=== PATIENT | female | born 1960 | race Caucasian/White ===

== ENCOUNTER → 2024-02-25 | Outpatient (CLI) | payer MEDICARE, MEDICAID, SELFPAY ==
--- NOTE | 2024-02-25 07:30 | XR_ITS ---
Examination: Breast ultrasound, unilateral, left complete Date and time of exam: February 25, 2024 0746 hours INDICATIONS: Mammogram August 24, 2023 3 mm focal asymmetry upper left breast MLO view, 6.3 cm from the nipple, family history, sister, breast cancer Technique: Real-time shannon scale ultrasonographic imaging performed left breast including all 4 quadrants as well as nipple retroareolar and axillary region. Findings: No cystic or solid mass IMPRESSION: BI-RADS Category 1: Negative study
--- NOTE | 2024-02-25 08:00 | XR_ITS ---
Examination: Diagnostic digital mammography, unilateral, left Computer aided detection 3-D breast Tomosynthesis, unilateral Date and time of exam: February 25, 2024 0756 hours INDICATIONS: 3 mm focal asymmetry upper left breast MLO view, 6.3 cm from the nipple Technique: Nonmagnified MLO, CC views of the left breast have been obtained, reconstructed from 3-D Tomosynthesis images. R2 computer aided detection program utilized for evaluation of suspicious masses and/or abnormal calcifications. 3-D Tomosynthesis images obtained. Findings: Scattered areas of fibroglandular density Focal asymmetry remains upper left breast MLO view, 3 mm Impression: BI-RADS category 3: Probably benign findings One additional 6 month left mammogram follow-up is needed to document stability of focal asymmetry upper left breast MLO view
== END | disposition home or self-care (01) ==
PROVIDERS: Referring Provider Physician Assistant; Visit Provider Physician Assistant
DX: R92.8 Other abnormal and inconclusive findings on diagnostic imaging of breast (principal); N64.89 Other specified disorders of breast; Z80.3 Family history of malignant neoplasm of breast
CPT/HCPCS: 76641; 77061; 77065; G0279

== ENCOUNTER 2024-02-26 16:03 | Emergency (ER) | payer MEDICARE, MEDICAID, SELFPAY ==
[2024-02-26 16:04] VITALS: BMI 42.5
[2024-02-26 16:22] VITALS: BP 154/95; PULSE 63; RESP 18; TEMP 37.1; O2SAT 99
--- NOTE | 2024-02-26 16:35 | XR_ITS ---
Examination: Knee, left , 3 views Technique: Knee AP, lateral, oblique 3 views Date and time of exam: February 27, 2024 1645 hours INDICATIONS: Patient fell last night with injury to the knee, knee pain. FINDINGS: No acute fracture No dislocation No foreign body IMPRESSION: No acute fracture
--- NOTE | 2024-02-26 16:35 | XR_ITS ---
Examination: Wrist, left 3 views Technique: Wrist AP, oblique, lateral 3 views Date and time of exam: February 26, 2024 1645 hours INDICATIONS: Patient fell last night with injury to the wrist, wrist pain. FINDINGS: No acute fracture Atrophic trapezium Soft tissue swelling dorsum of the wrist IMPRESSION: No acute fracture
--- NOTE | 2024-02-26 18:14 | EDNOTE_ITS ---
<Statement entered by Norma Pleitez MD - 02/28/24 15:27> As co-signing physician, I was present and available for consult prn. I concur with the plan and care as documented by the midlevel provider. Upper Extremity Injury RME/HPI General Chief Complaint: Hand/Wrist Problems Stated Complaint: LEFT WRIST PAIN Time Seen by Provider: 02/26/24 16:30 Arrival date/time: 02/26/24 16:03 64-year-old female presents emergency department complains of left wrist pain and left knee pain Limitations: no limitations Related Data Home Medications ?Medication ?Instructions ?Recorded ?Confirmed atenolol 50 mg tablet (Tenormin) 50 mg PO QPM #0 tabs 10/15/14 11/20/23 gabapentin 600 mg tablet 600 mg PO TID #0 tabs 10/15/14 11/20/23 pravastatin 20 mg tablet 20 mg PO QDAY #0 tabs 10/15/14 11/20/23 (Pravachol) quetiapine 200 mg tablet (Seroquel) 200 mg PO QDAY #0 tabs 10/15/14 11/20/23 cyclobenzaprine 10 mg tablet 10 mg PO HS 03/01/19 11/20/23 lorazepam 2 mg tablet 1 mg PO BID 03/01/19 11/20/23 quetiapine 200 mg tablet 3 tab PO HS 03/01/19 11/20/23 triamterene 37.5 1 cap PO QDAY 03/02/19 11/20/23 mg-hydrochlorothiazide 25 mg capsule acetaminophen 325 mg tablet 325 mg PO QID PRN Pain 07/28/20 11/20/23 (Tylenol) ascorbic acid 125 mg-collagen, 1 cap PO DAILY 07/28/20 11/20/23 hydrolyzed 740 mg capsule (Collagen Plus Vitamin C) cetirizine 10 mg tablet (Zyrtec) 10 mg PO QDAY 07/28/20 11/20/23 cholecalciferol (vitamin D3) 125 125 mcg PO QDAY 07/28/20 11/20/23 mcg (5,000 unit) tablet (Vitamin D3) lysine 500 mg capsule 500 mg PO DAILY 07/28/20 11/20/23 coqskkun-oshe-ofim 8 mg-folic 400 1 tab PO QDAY 07/28/20 11/20/23 mcg-K 50 mcg-lutein 300 mcg tablet (Centrum Silver Women) psyllium husk 0.4 gram capsule 0.4 g PO QDAY 07/28/20 11/20/23 (Metamucil) venlafaxine 100 mg tablet 100 mg PO QDAY 07/28/20 11/20/23 zinc 50 mg tablet 50 mg PO QDAY 07/28/20 11/20/23 losartan 25 mg tablet 25 mg PO QDAY 07/30/20 11/20/23 venlafaxine 150 mg tablet,extended 150 mg PO TID 07/30/20 11/20/23 release 24 hr Previous Rx's ?Medication ?Instructions ?Recorded diphenhydramine HCl 50 mg capsule 50 mg PO Q8H PRN allergic reaction 03/01/19 #30 caps Allergies Allergy/AdvReac Type Severity Reaction Status Date / Time morphine Allergy Mild Itching Verified 02/26/24 16:06 amoxicillin [From Augmentin] Allergy Unknown Swelling Verified 02/26/24 16:06 of Lip/Tongue/Throat clavulanic acid Allergy Unknown Swelling Verified 02/26/24 16:06 [From Augmentin] of Lip/Tongue/Throat Review of Systems Review of Systems Systems Reviewed: All systems reviewed, normal except as documented Constitutional Constitutional: Reports system reviewed and no additional complaints, except as documented, Denies fever(s) and Denies headache(s) Eyes Eyes: Reports system reviewed and no additional complaints, except as documented and Denies blurry vision ENT Ears, Nose, Mouth, and Throat: Reports system reviewed and no additional complaints, except as documented, Denies headache(s), Denies nasal congestion and Denies nasal discharge Cardiovascular Cardiovascular: Reports system reviewed and no additional complaints, except as documented, Denies chest pain and Denies dyspnea Respiratory Respiratory: Reports system reviewed and no additional complaints, except as documented, Denies chest congestion, Denies cough and Denies dyspnea Gastrointestinal Gastrointestinal: Reports system reviewed and no additional complaints, except as documented and Denies abdominal pain Musculoskeletal Musculoskeletal: Reports system reviewed and no additional complaints, except as documented, Reports arthralgias (Left knee pain left wrist pain), Denies joint swelling, Denies numbness, Reports stiffness and Denies tingling Integumentary/Breasts Skin/Breast: Reports system reviewed and no additional complaints, except as documented and Denies rash Neurologic Neurologic: Reports system reviewed and no additional complaints, except as documented, Reports as per HPI, Denies headache(s), Denies numbness and Denies tingling Past Medical History Past Medical History NEUROLOGIC: Negative Neurological Disorders or Seizures CARDIAC: Positive Cardiac Disorders (seen mend worker 2018), Hypercholesterolemia (TAKE MED) and Hypertension (TAKE MED); Negative Congestive Heart Failure, Edema, Cellulitis or Varicose Veins RESPIRATORY: Negative Chronic Obstructive Pulmonary Disease (COPD) GASTROINTESTINAL: Positive Gastrointestinal Disorders, Diverticulosis and Hemorrhoids (NO SURG); Negative Hepatitis GENITOURINARY: Negative Genitourinary Disorders or Renal Disease REPRODUCTIVE: Positive Previous Pregnancies (X6); Negative Endometriosis, Genital Herpes, Gonorrhea, Pelvic Inflammatory Disease, Syphilis or Uterine Prolapse MUSCULOSKELETAL: Positive Musculoskeletal Disorders (pain management due to neck/back, shots to neck x3 per year), Arthritis (neck/back), Degenerative Disk Disease (neck/back) and Carpal Tunnel Syndrome (BUBBA X2 EACH) ENDOCRINE: Negative Endocrine Disorders, Diabetes Mellitus Type 1 or Diabetes Mellitus Type 2 (PREDIABETES) HEMATOLOGIC: Positive Blood Disorders and Anemia (blood transfusion, ovarian cyst heavy period); Negative Leukemia, Hemophilia, Thalassemia, Sickle Cell Disease or Clotting Problems PSYCHO/SOCIAL: Positive Depression (TAKES MED) and Anxiety (TAKES MED) OTHER HISTORY: Positive Shingles (2005), Blood Transfusions (DUE TO ENDOMETRIOSIS PRIOR TO HYSTERECTOMY), Anesthesia Reactions (MORPHINE DUE TO EPIDURAL ITCHING), Chicken Pox, Measles, Mumps and Clostridium Difficile; Negative Hospitalization, Autoimmune Disease, Down Syndrome, Developmental Delay, Falls, Blood Transfusion Reaction, Organ Transplant, Chemotherapy, Radiation Therapy, Hyperbaric Therapy, MRSA, VRSA, Vancomycin-Resistant Enterococci, Human Immunodeficiency Virus (HIV), Rubella (Hungarian Measles), Pertussis or Cancer Family History FAMILY HISTORY: Positive Family Psychiatric Problems (SISTER (DEPRESSION,ANXIETY)), Family Respiratory Disorders (SISTER (ASTHMA)), Family Cardiac Disorders (FATHER (CO,QUADRUPLE BYPASS,CHF),BROTHER,SISTER (HTN)), Family Gastrointestinal Problems (SISTER (ULCER,STOMACH)), Family Cancer (SISTER (STOMACH)), Family Surgery (FATHER,SISTER,MOTHER,BROTHER) and Family Anesthesia Reaction (BROTHER (CODED IN OR)) Surgical History SURGICAL: Positive Tonsillectomy, Gastric Bypass Surgery (2010), Hysterectomy (total WITH BUBBA SALPING) and Section (x1); Negative Cardiac Surgery, Pacemaker or Organ Transplant Social History SMOKING STATUS: Never smoker ED Exam General Limitations: Present no limitations General appearance: Present alert and in no apparent distress Head Head exam: Present atraumatic, normocephalic and normal inspection Eye Eye exam: Present normal appearance, PERRL and EOMI ENT ENT exam: Present normal exam, normal oropharynx and mucous membranes moist Neck Neck exam: Present normal inspection, full ROM and trachea midline Chest Chest inspection: Present normal inspection and symmetric chest wall rise Respiratory Respiratory exam: Present normal lung sounds bilaterally Cardiovascular Cardiovascular exam: Present regular rate, normal rhythm and normal heart sounds Abdominal Exam Abdominal exam: Present soft and normal bowel sounds Extremities Exam Extremities exam: Present full ROM, tenderness, normal capillary refill and other (Left wrist pain, left knee pain); Absent pedal edema or joint swelling Back Exam Back exam: Present normal inspection and full ROM Neurological Exam Neurological exam: Present alert, oriented X3 and CN II-XII intact Psychiatric Psychiatric exam: Present normal affect and normal mood Skin Skin exam: Present warm, dry, intact and normal color Course Quality Measures none Orders Category Date Time Status XR knee LT 3V Stat Exams 02/26/24 16:35 Completed XR wrist comp LT min 3V Stat Exams 02/26/24 16:35 Completed Vital Signs Vital signs: Vital Signs Temperature 98.7 F 02/26/24 16:22 Pulse Rate 63 02/26/24 16:22 Respiratory Rate 18 02/26/24 16:22 Blood Pressure 154/95 H 02/26/24 16:22 Pulse Oximetry (%) 99 02/26/24 16:22 Oxygen Delivery Method Room Air 02/26/24 16:22 O2 saturation 99 % r/a wnl Extremity Injury MDM Narrative MDM Narrative:: 64-year-old female presents emergency department complains of left wrist pain and left knee pain patient reports having ground-level fall patient reports no head or neck injury On exam patient is tenderness of the left wrist and left knee there is no definite swelling noted no bruising X-ray of the left knee and left wrist obtained no acute fracture dislocation noted Patient discharged home in no distress to follow-up with primary care doctor in the next 24 to 48 hours and for any worsening symptoms to return to the ER immediately Patient data External records reviewed:: [facility] previous records Clinical information provided by:: patient Social determinants that could affect healthcare access:: none Patient has the following chronic illnesses:: None How is presenting disease/condition affected by chronic disease/condition?: no chronic disease Evaluation data The following diagnostics were reviewed and interpreted by me:: radiology exam(s) Lab and/or radiology exams considered but not ordered:: Radiology obtain Interpretation Summary: Reviewed by me Medications / Prescriptions Medications or Prescriptions considered but not ordered:: No meds Medication administrations:: No meds Consultations Consultation(s) initiated? (list below): No Diagnosis Upper Extremity Injury Differential Diagnosis: sprain and strain of wrist, fracture of wrist and other (Knee sprain, knee fracture) Most likely diagnosis given after review of the tests above:: Knee sprain, wrist sprain Admission Indicated Admission indicated?: not indicated Admission Request Was there a request for admission?: No Disposition Plan Disposition Plan: Discharge Discharge Attestation Discharge Attestation: The patient and all family members were given an opportunity to ask questions and understood the discharge instructions. Discharge instructions specifically effects, indications for sooner follow up or return to the emergency department, and the expected course of current diagnosis. Patient condition: Stable Discharge Plan Plan Patient Disposition: HOME (Self Care) Disposition Comment: Stable Prescriptions/Referrals Prescriptions/Med Rec: No Action gabapentin 600 MG tablet 600 mg PO TID Qty: 0 quetiapine [Seroquel] 200 MG tablet 200 mg PO QDAY Qty: 0 pravastatin [Pravachol] 20 MG tablet 20 mg PO QDAY Qty: 0 atenolol [Tenormin] 50 MG tablet 50 mg PO QPM Qty: 0 cyclobenzaprine 10 mg Tablet 10 mg PO HS quetiapine 200 mg Tablet 3 tab PO HS lorazepam 2 mg Tablet 1 mg PO BID diphenhydramine HCl 50 mg capsule 50 mg PO Q8H PRN (Reason: allergic reaction) Qty: 30 0RF triamterene-hydrochlorothiazid 37.5-25 mg Capsule 1 cap PO QDAY lysine 500 mg Capsule 500 mg PO DAILY Collagen Plus Vitamin C 125-740 mg Capsule 1 cap PO DAILY Centrum Silver Women 8 mg iron-400 mcg-300 mcg Tablet 1 tab PO QDAY psyllium husk [Metamucil] 0.4 gram Capsule 0.4 g PO QDAY acetaminophen [Tylenol] 325 mg Tablet 325 mg PO QID PRN (Reason: Pain) cetirizine [Zyrtec] 10 mg Tablet 10 mg PO QDAY venlafaxine 100 mg Tablet 100 mg PO QDAY zinc 50 mg Tablet 50 mg PO QDAY cholecalciferol (vitamin D3) [Vitamin D3] 125 mcg (5,000 unit) Tablet 125 mcg PO QDAY losartan 25 mg Tablet 25 mg PO QDAY venlafaxine 150 mg Tablet Extended Release 24hr 150 mg PO TID Referrals: Cheryl King PA-C [Primary Care Provider] - In 1 week Problem List Clinical Impression: Fall, Left wrist pain, Left knee pain Patient/Caregiver Discharge Instructions Additional Instructions: Please follow up with your primary care doctor in the next 24-48hrs for any worsening symptoms return here immediately Print Language: Malay Stand Alone Forms: Carey Award Info., Patient Portal Info Letter PA/HOLLIS Supervising Physician PA/HOLLIS Supervising Physician: Dr. PLEITEZ
== END 2024-02-26 18:42 | disposition home or self-care (01) ==
PROVIDERS: Emergency Provider Emergency Medicine; PCP Physician Assistant
DX: M25.532 Pain in left wrist (principal); M25.562 Pain in left knee
CPT/HCPCS: 73110; 73562; 99283

== ENCOUNTER 2024-03-18 14:47 | Outpatient (AMB) | payer MEDICARE, MEDICAID, SELFPAY ==
[2024-03-18 15:22] VITALS: BP 143/88; PULSE 74; RESP 18; TEMP 35.9; O2SAT 98; BMI 42.5
--- NOTE | 2024-03-18 15:22 | PD.ORTHCLVIS ---
Vital signs 03/18/24 15:22 Height 1.6 m Height Method Stated Weight 108.862 kg Weight Measurement Method Estimated by Patient BMI 42.5 BP 143/88 H Blood Pressure Source Automatic Cuff Blood Pressure Location Left Upper Arm Position Sitting Respiration 18 Pulse 74 Pulse Source Monitor Temp 96.6 F L Temp Source Temporal Artery Scan Pulse Oximetry (%) 98 Oxygen Delivery Method Room Air Med/Allergies Allergies & Medications Allergies morphine Allergy (Mild, Verified 03/18/24 15:23) Itching amoxicillin (From Augmentin) Allergy (Unknown, Verified 03/18/24 15:23) Swelling of Lip/Tongue/Throat clavulanic acid (From Augmentin) Allergy (Unknown, Verified 03/18/24 15:23) Swelling of Lip/Tongue/Throat Medication Reconciliation atenolol 50 mg tablet (Tenormin) 50 mg PO QPM #0 tabs 10/15/14 [History Confirmed 03/18/24] gabapentin 600 mg tablet 600 mg PO TID #0 tabs 10/15/14 [History Confirmed 03/18/24] pravastatin 20 mg tablet (Pravachol) 20 mg PO QDAY #0 tabs 10/15/14 [History Confirmed 03/18/24] quetiapine 200 mg tablet (Seroquel) 200 mg PO QDAY #0 tabs 10/15/14 [History Confirmed 03/18/24] cyclobenzaprine 10 mg tablet 10 mg PO HS 03/01/19 [History Confirmed 03/18/24] diphenhydramine HCl 50 mg capsule 50 mg PO Q8H PRN allergic reaction #30 caps 03/01/19 [Rx Confirmed 03/18/24] lorazepam 2 mg tablet 1 mg PO BID 03/01/19 [History Confirmed 03/18/24] quetiapine 200 mg tablet 3 tab PO HS 03/01/19 [History Confirmed 03/18/24] triamterene 37.5 mg-hydrochlorothiazide 25 mg capsule 1 cap PO QDAY 03/02/19 [History Confirmed 03/18/24] acetaminophen 325 mg tablet (Tylenol) 325 mg PO QID PRN Pain 07/28/20 [History Confirmed 03/18/24] ascorbic acid 125 mg-collagen, hydrolyzed 740 mg capsule (Collagen Plus Vitamin C) 1 cap PO DAILY 07/28/20 [History Confirmed 03/18/24] cetirizine 10 mg tablet (Zyrtec) 10 mg PO QDAY 07/28/20 [History Confirmed 03/18/24] cholecalciferol (vitamin D3) 125 mcg (5,000 unit) tablet (Vitamin D3) 125 mcg PO QDAY 07/28/20 [History Confirmed 03/18/24] lysine 500 mg capsule 500 mg PO DAILY 07/28/20 [History Confirmed 03/18/24] umzuoksq-zmtq-vqwy 8 mg-folic 400 mcg-K 50 mcg-lutein 300 mcg tablet (Centrum Silver Women) 1 tab PO QDAY 07/28/20 [History Confirmed 03/18/24] psyllium husk 0.4 gram capsule (Metamucil) 0.4 g PO QDAY 07/28/20 [History Confirmed 03/18/24] venlafaxine 100 mg tablet 100 mg PO QDAY 07/28/20 [History Confirmed 03/18/24] zinc 50 mg tablet 50 mg PO QDAY 07/28/20 [History Confirmed 03/18/24] losartan 25 mg tablet 25 mg PO QDAY 07/30/20 [History Confirmed 03/18/24] venlafaxine 150 mg tablet,extended release 24 hr 150 mg PO TID 07/30/20 [History Confirmed 03/18/24] meloxicam 7.5 mg tablet 7.5 mg PO QDAY #45 tabs 03/18/24 [Rx] Exam Exam Patient is in no acute distress and is cooperative with the examination today. Breathing is nonlabored. Patient has a normal mood and affect. Bilateral extremities were evaluated and demonstrates sensation intact to light touch. Palpable pedal pulses are present. No significant edema is present. Bilateral hips were examined. The patient has no pain with log roll of the hips. Internal rotation to 30 degrees and external rotation to 30 degrees is painless. Negative FADIR. Right knee was examined today. The right knee is in reasonable alignment. Range of motion from 0-120 degrees. Knee is stable to varus and valgus as well as AP translation with <5mm. Patient has a negative McMurrays. There is no pain with patellofemoral compression and no crepitus noted. The knee is nontender to palpation. Left knee was examined today. The left knee is in [varus] alignment. Range of motion from [0-115] degrees. Knee is stable to varus and valgus as well as AP translation with <5mm. Patient has a [negative] McMurrays. There is [no] pain with patellofemoral compression and [no] crepitus noted. The knee is [tender] to palpation [medially]. X-rays demonstrate moderate osteoarthritis of the left knee. There is joint space narrowing. There is no fracture Assessment and Plan Problem List (1) Unilateral primary osteoarthritis, left knee: Status: Acute Plan: Patient is a pleasant 63-year-old female who presents today for evaluation of her left knee. She has mild to moderate left knee osteoarthritis. She is trying to lose weight. We discussed cortisone injections and anti-inflammatories and other nonoperative treatments. . We also recommend weight loss. Advanced Care Planning Discussion Advance care planning discussed with:: patient Office Procedures GNS Level of Care Nursing/Assessment Patient Status: Established Patient Nursing Assessment/Reassesment: Medication Reconciliation, Update PMH in EMR and Vital Signs Coordination of Care: Complex Care and Chronic Disease 1-5, Education Complex Pt/Fam, Consent,records obtained, informed consent, Results/Orders obtained and Staff clarify orders Established Patient Charge Established Patient Point Assignment: 95 Established Patient Point Charge: EP Level 3 (80-115) MA Intake Visit Data Collection New Patient or Established: Established Patient (seen at [facility] within 3 years) Reason for Visit:: 3MTH F/U KNEE INJ Seen by Clinical Staff ONLY (RN/MA): No Airline Reservation Agent Required: No PCP or OBGYN visit in last 3 months: Yes Hx Now: No Do You Feel Safe at Home: Yes Authorities Contacted: N/A Questionairres Past Medical History Past Medical History Have you ever been diagnosed with any of the following: Neurological Problems Seizures: No Cardiology Problems Hypercholesterolemia: Yes (TAKE MED) Congestive Heart Failure: No Edema: No Cellulitis: No Hypertension: Yes (TAKE MED) Varicose Veins: No Respiratory Problems Chronic Obstructive Pulmonary Disease (COPD): No Stomache/Intestinal Problems Hepatitis: No Diverticulosis: Yes Hemorrhoids: Yes (NO SURG) Genital/Urinary Problems Renal Disease: No Reproductive Problems Endometriosis: No Genital Herpes: No Gonorrhea: No Pelvic Inflammatory Disease: No Previous Pregnancies: Yes (X6) Syphilis: No Uterine Prolapse: No Musculoskeletal Problems Arthritis: Yes (neck/back) Degenerative Disk Disease: Yes (neck/back) Carpal Tunnel Syndrome: Yes (BUBBA X2 EACH) Endocrine Problems Diabetes Mellitus Type 1: No Diabetes Mellitus Type 2: No (PREDIABETES) Blood Problems Anemia: Yes (blood transfusion, ovarian cyst heavy period) Leukemia: No Hemophilia: No Thalassemia: No Sickle Cell Disease: No Clotting Problems: No Psychologic Problems Depression: Yes (TAKES MED) Anxiety: Yes (TAKES MED) Other Problems Hospitalization: No Down Syndrome: No Developmental Delay: No Shingles: Yes (2004) Falls: No Blood Transfusions: Yes (DUE TO ENDOMETRIOSIS PRIOR TO HYSTERECTOMY) Blood Transfusion Reaction: No Anesthesia Reactions: Yes (MORPHINE DUE TO EPIDURAL ITCHING) Organ Transplant: No Chemotherapy: No Radiation Therapy: No Hyperbaric Therapy: No MRSA: No VRSA: No Vancomycin-Resistant Enterococci: No Human Immunodeficiency Virus (HIV): No Chicken Pox: Yes Measles: Yes Mumps: Yes Rubella (Azeri Measles): No Pertussis: No Clostridium Difficile: Yes Cancer: No Surgical History Hysterectomy: Yes (total WITH BUBBA SALPING) Pacemaker: No Subjective Visit Visit for: follow up visit, knee and injections Immunization / Flu Flu Vaccine in the Last 12 Months: No Flu Vaccine Exclusion Criteria: No Exclusion Criteria History of Present Illness Chief complaint: left knee pain She had a fall 3 weeks ago. The pain is improving. She is walking and reports that the pain is worse in the hand Pain Pain level (0-10): 3 Pain duration: ON AND OFF Pain location: inside (medial), outside (lateral) and anterior Pain quality: sharp and aching Pain timing: increases with activity Associated signs & symptoms: none Ambulatory data Ambulatory device: none Treatments Improvement with previous injections: No Improvement with PT: No Improvement with NSAIDS: no Review of Systems Review of Systems: All systems negative unless otherwise noted in HPI.
== END 2024-03-18 15:45 | disposition home or self-care (01) ==
LOC: HODSRG 14:47
PROVIDERS: PCP Physician Assistant; Referring Provider Physician Assistant; Supervising Provider Orthopaedic Surgery Adult Reconstructive Orthopaedic Surgery; Visit Provider Orthopaedic Surgery Adult Reconstructive Orthopaedic Surgery
DX: M17.12 Unilateral primary osteoarthritis, left knee (principal); I10 Essential (primary) hypertension; E78.00 Pure hypercholesterolemia, unspecified
CPT/HCPCS: 99213; G0463

== ENCOUNTER 2024-06-09 10:35 | Day surgery (SDC) | payer MEDICARE, MEDICAID, SELFPAY ==
--- NOTE | 2024-06-06 11:15 | EKG_ITS ---
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 : 1960 Requested By: Fay Espinosa Order Number: [id number] Reading MD: Fay Espinosa Measurements Intervals [place] Rate: 66 P: 66 [place]: 198 QRS: -54 QRSD: 107 T: 62 QT: 394 QTc: 414 Interpretive Statements SINUS RHYTHM PATTERN CONSISTENT WITH PULMONARY DISEASE LEFT ANTERIOR FASCICULAR BLOCK [QRS AXIS <= -45, QR IN I, RS IN II] VOLTAGE CRITERIA FOR LVH [MEETS CRITERIA IN ONE OF: R(aVL), S(V1), R(V5), R(V5/V6)+S(V1)] Compared to ECG 07/30/2020 10:28:19 Left ventricular hypertrophy now present Incomplete right bundle-branch block no longer present /store/S0/[id number]
[2024-06-06 11:52] LABS: Alanine Aminotransferase 18 U/L (10-49); Albumin, Serum 4.1 gm/dL (3.4-4.8); Albumin/Globulin Ratio 1.7 (1.2-2.2); Alkaline Phosphatase 136 U/L (46-116); Anion Gap 7 (7-16); Aspartate Amino Transferase 25 U/L (0-34); BUN/Creatinine Ratio 8 Ratio (12-20); Bilirubin,Total 0.3 mg/dL (0.3-1.2); Blood Urea Nitrogen 6 mg/dL (9-23); Calcium 9.6 mg/dL (8.3-10.6); Calcium (Corrected) 9.6 mg/dL (8.5-10.1); Carbon Dioxide 29.3 mMol/L (20.0-31.0); Chloride 102 mMol/L (98-107); Creatinine (Component) 0.8 mg/dL (0.6-1.3); Globulin 2.4 gm/dL (2.3-3.5); Glucose 101 mg/dL (74-106); Osmolality,Calculated 273 (275-295); Potassium 3.9 mMol/L (3.4-5.1); Sodium 138 mMol/L (136-145); Total Protein 6.5 gm/dL (5.7-8.2); eGFR > 60 See Note
[2024-06-06 12:21] LABS: Partial Thromboplastin Time 27.5 Seconds (22.0-36.0); Prothrombin Time 10.6 Seconds (9.0-12.2)
[2024-06-09 10:52] VITALS: BMI 42.1
[2024-06-09 11:30] VITALS: BP 169/99; PULSE 99; RESP 20; TEMP 36.2; O2SAT 100
[2024-06-09] MEDS: RINGERS LACTATED 1000 ML 1,000 ML 60 ML IV (13:45)
[2024-06-09 14:15] VITALS: BP 116/68; PULSE 100; RESP 17; TEMP 36.7; O2SAT 94
[2024-06-09 14:25] VITALS: BP 135/85; PULSE 83; RESP 12; O2SAT 95
[2024-06-09 14:35] VITALS: BP 139/92; PULSE 89; RESP 12; O2SAT 94
== END 2024-06-09 15:06 | disposition home or self-care (01) ==
PROVIDERS: PCP Physician Assistant; Referring Provider Specialist; Visit Provider Specialist
PROC: 0DBE8ZX Excision of Large Intestine, Via Natural or Artificial Opening Endoscopic, Diagnostic (ICD-10-PCS; CPT 45380; principal; 2024-06-09 11:45)
DX: K52.9 Noninfective gastroenteritis and colitis, unspecified (principal); Z01.810 Encounter for preprocedural cardiovascular examination; D12.3 Benign neoplasm of transverse colon; K63.89 Other specified diseases of intestine; K62.89 Other specified diseases of anus and rectum; K64.9 Unspecified hemorrhoids; K57.31 Diverticulosis of large intestine without perforation or abscess with bleeding
CPT/HCPCS: 45380; 36415; 80053; 85610; 85730; 93005; A4649; J7120

== ENCOUNTER 2024-06-09 23:03 | Emergency (ER) | payer MEDICARE, MEDICAID, SELFPAY ==
--- NOTE | 2024-06-09 23:07 | EKG_ITS ---
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: : 1960 Requested By: ED Temporary Provider Order Number: [id number] Reading MD: ED Temporary Provider Measurements Intervals [place] Rate: 136 P: -57 [place]: 123 QRS: -56 QRSD: 106 T: 80 QT: 313 QTc: 471 Interpretive Statements SINUS TACHYCARDIA INCOMPLETE RIGHT BUNDLE BRANCH BLOCK [90+ ms QRS DURATION, TERMINAL R IN V1/V2, 40+ ms S IN I/aVL/V4/V5/V6] LEFT ANTERIOR FASCICULAR BLOCK [QRS AXIS <= -45, QR IN I, RS IN II] LEFT VENTRICULAR HYPERTROPHY AND ST-T CHANGE [VOLTAGE CRITERIA PLUS ST/T ABNORMALITY] POSSIBLE ANTEROLATERAL MYOCARDIAL INFARCTION , OF INDETERMINATE AGE [30 ms Q WAVE IN I/aVL/V3-V6] Compared to ECG 06/06/2024 11:18:28 Incomplete right bundle-branch block now present ST (T wave) deviation now present Myocardial infarct finding now present Sinus rhythm no longer present /store/[id number]
[2024-06-09 23:15] VITALS: BP 136/85; PULSE 145; RESP 20; TEMP 36.9; O2SAT 95
--- NOTE | 2024-06-09 23:24 | PD.EDRME ---
Rapid Medical Screening Exam RME Arrival date/time: 06/09/24 23:03 Chief Complaint: General Adult/Misc Complain Vital signs: Vital Signs Temperature 98.5 F 06/09/24 23:15 Pulse Rate 145 H 06/09/24 23:15 Respiratory Rate 20 06/09/24 23:15 Blood Pressure 136/85 H 06/09/24 23:15 Pulse Oximetry (%) 95 06/09/24 23:15 Oxygen Delivery Method Room Air 06/09/24 23:15 Vital signs reviewed by provider: Yes RME Narrative: Patient had a colonoscopy today and was given a medication that she is not able to pronounce upon discharge patient was told not to take any of her home medications. Patient consumed Seroquel and cough medication which caused her heart to race and she developed difficulty breathing.
[2024-06-09 23:48] LABS: Basophils % (Auto) 1 % (0-2.5); Eosinophils # (Auto) 0.4 Thou/mm3 (0.0-0.5); Eosinophils % (Auto) 5 % (0-10); Hematocrit 35.4 % (36.0-46.0); Hemoglobin 12.1 g/dL (12.0-16.0); Immature Granulocytes % (Auto) 1 % (0-0); Immature Granulocytes Auto 0.04 Thou/mm3 (0.00-0.00); Lymphocytes # (Auto) 2.4 Thou/mm3 (1.0-4.8); Lymphocytes % (Auto) 27 % (10-50); Mean Corpuscular HGB Conc 34.2 g/dl (31.0-37.0); Mean Corpuscular Hemoglobin 28.7 pg (25.0-35.0); Mean Corpuscular Volume 84 fL (80-100); Monocytes # (Auto) 0.7 Thou/mm3 (0.0-0.8); Monocytes % (Auto) 8 % (0-12); Neutrophils # (Auto) 5.1 Thou/mm3 (1.8-7.7); Neutrophils % (Auto) 59 % (37-80); Nucleated Red Blood Cell % 0 /100 WBC (0); Platelet Count 342 Thou/mm3 (140-440); RDW Standard Deviation 40.9 fL (36.4-46.3); Red Blood Count 4.22 Miln/mm3 (4.00-5.20); White Blood Count 8.6 Thou/mm3 (3.6-11.0)
[2024-06-10 00:11] LABS: Alanine Aminotransferase 31 U/L (10-49); Albumin, Serum 4.1 gm/dL (3.4-4.8); Albumin/Globulin Ratio 1.9 (1.2-2.2); Alcohol, Blood Medical < 3.0 mg/dL (0-10.0); Alkaline Phosphatase 138 U/L (46-116); Anion Gap 11 (7-16); Aspartate Amino Transferase 43 U/L (0-34); BUN/Creatinine Ratio 7 Ratio (12-20); Bilirubin,Total 0.3 mg/dL (0.3-1.2); Blood Urea Nitrogen < 5 mg/dL (9-23); Calcium 9.4 mg/dL (8.3-10.6); Calcium (Corrected) 9.4 mg/dL (8.5-10.1); Carbon Dioxide 25.3 mMol/L (20.0-31.0); Chloride 98 mMol/L (98-107); Creatinine (Component) 0.7 mg/dL (0.6-1.3); Globulin 2.2 gm/dL (2.3-3.5); Glucose 145 mg/dL (74-106); Osmolality,Calculated 268 (275-295); Potassium 3.1 mMol/L (3.4-5.1); Sodium 134 mMol/L (136-145); Total Protein 6.3 gm/dL (5.7-8.2); Troponin I < 0.020 ng/mL (0.0-0.045); eGFR > 60 See Note
[2024-06-10 00:13] VITALS: BP 128/93; PULSE 90; RESP 18; TEMP 36.8; O2SAT 98
[2024-06-10 00:43] LABS: Amphetamine/Methamp Scrn,U Negative (Negative); Barbiturate Screen,Urine Negative (Negative); Benzodiazepines Screen,Urine Negative (Negative); Benzoylecgonine Screen, Ur Negative (Negative); Fentanyl Screen,Urine Negative (Negative); Opiate Screen,Urine Negative (Negative); THC Screen,Urine Negative (Negative)
[2024-06-10 03:20] VITALS: BP 152/94; PULSE 89; RESP 18; TEMP 36.6; O2SAT 100
--- NOTE | 2024-06-10 03:37 | PD.EDADULT ---
ED General RME/HPI General Chief complaint: General Adult/Misc Complain Stated complaint: PALPITATION,SHAKY Arrival date/time: 06/09/24 23:03 RME / HPI RME / HPI narrative: Patient had a colonoscopy today and was given a medication that she is not able to pronounce upon discharge patient was told not to take any of her home medications. Patient consumed Seroquel and cough medication which caused her heart to race and she developed difficulty breathing. ------ Dr. Burton's Main ED Evaluation: 64yo female with a history of depression presents to the ED for a chief complaint of anxiety. Patient states she had a colonoscopy today, reporting she was told to not take her nighttime depression medications. Patient states she was unable to sleep due to not taking her nighttime medications, so she took her anti-allergy cough medicine. Patient states she felt more anxious after taking the medication and started to feel shaky, so she came in for evaluation. Patient denies any N/V, chest pain, abdominal pain, fever, chills or any other associated symptoms. Related Data Home Medications ?Medication ?Instructions ?Recorded ?Confirmed atenolol 50 mg tablet (Tenormin) 50 mg PO QPM #0 tabs 10/15/14 06/09/24 pravastatin 20 mg tablet 20 mg PO QDAY #0 tabs 10/15/14 06/09/24 (Pravachol) quetiapine 200 mg tablet (Seroquel) 200 mg PO QDAY #0 tabs 10/15/14 06/09/24 lorazepam 2 mg tablet 1 mg PO BID 03/01/19 06/09/24 Held on 06/09/24. Instructions: Resume on 06/10/24. triamterene 37.5 1 cap PO QDAY 03/02/19 06/09/24 mg-hydrochlorothiazide 25 mg capsule acetaminophen 325 mg tablet 325 mg PO QID PRN Pain 07/28/20 06/09/24 (Tylenol) venlafaxine 100 mg tablet 100 mg PO QDAY 07/28/20 06/09/24 losartan 25 mg tablet 25 mg PO QDAY 07/30/20 06/09/24 Allergies Allergy/AdvReac Type Severity Reaction Status Date / Time morphine Allergy Mild Itching Verified 06/09/24 23:07 amoxicillin (From Augmentin) Allergy Unknown Swelling Verified 06/09/24 23:07 of Lip/Tongue/Throat clavulanic acid (From Allergy Unknown Swelling Verified 06/09/24 23:07 Augmentin) of Lip/Tongue/Throat Review of Systems Review of Systems Systems Reviewed: All systems reviewed, normal except as documented ED Exam Narrative Physical exam: General: Non-toxic, appears anxious, well appearing, in no acute distress, and appears stated age and well developed and well nourished. Vital signs: Normal. Head: Normocephalic and atraumatic. Eyes: Aproptotic, extraocular movements intact. Nose: Nares without evidence of rhinorrhea. Neck: Supple without menigismus without lympadenopathy. Heart: Regular rate and rhythm without murmur, gallops, or rubs. Lungs: Clear to auscultation without wheezing, rales, or rhonchi. Abdomen: Soft, non distended. No tenderness. Normal bowel sounds. Negative Islas sign and no McBurney?s point tenderness. No guarding, rebound, or rovsing. Back: No costovertebral angle tenderness. Neurological: Alert and oriented to person, place, time. Gait normal. Extremities: no cyanosis or edema. Skin: no rashes, ecchymosis, or lesions. Course Quality Measures none Orders Category Date Time Status EKG (ED ONLY) *Do not use* NOW Care 06/09/24 23:07 Completed EKG (ED Only) Stat Exams 06/09/24 23:07 Draft Alcohol, Blood Medical Stat Lab 06/09/24 23:33 Completed CBC Stat Lab 06/09/24 23:33 Completed CMP [Comprehensive Metabolic Panel] Stat Lab 06/09/24 23:33 Completed Drug Screen,Urine Stat Lab 06/09/24 23:35 Completed TSH [Thyroid Stimulating Hormone] Stat Lab 06/09/24 23:33 Completed Troponin I Stat Lab 06/09/24 23:33 Completed LORazepam [Ativan] Med 06/10/24 04:58 Discontinued 2 mg PO X1 ONE Vital Signs Vital signs: Vital Signs Temperature 98.5 F 06/09/24 23:15 Pulse Rate 145 H 06/09/24 23:15 Respiratory Rate 20 06/09/24 23:15 Blood Pressure 136/85 H 06/09/24 23:15 Pulse Oximetry (%) 95 06/09/24 23:15 Oxygen Delivery Method Room Air 06/09/24 23:15 Discharge Plan Plan Patient Disposition: HOME (Self Care) Patient condition on transfer: Stable Prescriptions/Referrals Prescriptions/Med Rec: No Action quetiapine [Seroquel] 200 MG tablet 200 mg PO QDAY Qty: 0 pravastatin [Pravachol] 20 MG tablet 20 mg PO QDAY Qty: 0 atenolol [Tenormin] 50 MG tablet 50 mg PO QPM Qty: 0 lorazepam 2 mg Tablet 1 mg PO BID triamterene-hydrochlorothiazid 37.5-25 mg Capsule 1 cap PO QDAY acetaminophen [Tylenol] 325 mg Tablet 325 mg PO QID PRN (Reason: Pain) venlafaxine 100 mg Tablet 100 mg PO QDAY losartan 25 mg Tablet 25 mg PO QDAY Referrals: No Primary/Family,Physician [Primary Care Provider] - In 1 week Problem List Clinical Impression: Anxiety Patient/Caregiver Discharge Instructions Education Materials: Anxiety Disorders Tx Therapy, ED Anxiety Reaction Additional Instructions: Take your medications as prescribed. Return to the ED for any other concerns. Print Language: Indonesian Stand Alone Forms: [employer] Award Info., Patient Portal Info Letter MDM Patient Acuity Low Acuity (complete MDM as needed) Narrative: Scribe Attestation: 06/10/24 - Elif Fonseca am scribing for and in the presence of Dr. Burton. Clinical Information Provided by: patient Medical Records reviewed [facility] (Per chart review, patient was seen here on 02/26/24 for a fall.) Meds/Rx considered, not ordered None Labs/Rad/Tests considered, not ordered None Chronic Illness/Social Conditions which may negatively complicate care or outcome(s)-explain: Mental health EKG EKG Interpretation(s): EKG done at 2320, sinus tachycardia, rate of 136, incomplete RBBB, LVH, QTc: 393, nonspecific ST-T wave changes, no STEMI, according to my interpretation. Labs Labs: Interpreted by me Lab(s) Interpretation(s): CBC is normal, CMP is normal, Troponin is normal, UDS is negative, Blood Alcohol is negative, according to my interpretation. Medication Administration(s) Medication Administration History Discontinued Medications Lorazepam (Lorazepam 0.5 Mg Tablet) 2 mg PO X1 ONE Stop: 06/10/24 04:59 Ativan Diagnosis Differential Diagnosis ED Complaint MDM: anxiety, electrolyte abnormality, medication side effect
[2024-06-10] MEDS: LORazepam 0.5 MG TABLET 2 MG PO (05:40)
[2024-06-10 06:03] VITALS: BP 147/82; PULSE 90; RESP 19; TEMP 36.7; O2SAT 100
[2024-06-10] MEDS: POTASSIUM CHLORIDE 20 mEq TABCR 40 MEQ PO (06:03)
== END 2024-06-10 06:20 | disposition home or self-care (01) ==
PROVIDERS: Physician Assistant; Emergency Provider Emergency Medicine
DX: F41.9 Anxiety disorder, unspecified (principal); R00.0 Tachycardia, unspecified; I45.10 Unspecified right bundle-branch block; I44.4 Left anterior fascicular block
CPT/HCPCS: 36415; 80053; 80307; 80320; 84443; 84484; 85025; 93005; 99283; A9270; G0480

== ENCOUNTER 2024-07-08 13:14 | Outpatient (AMB) | payer MEDICARE, MEDICAID, SELFPAY ==
--- NOTE | 2024-07-08 13:23 | PD.ORTHCLVIS ---
Vital signs 07/08/24 13:27 Height 1.6 m Height Method Stated Weight 107.955 kg Weight Measurement Method Standing Scale BMI 42.1 BP 157/98 H Blood Pressure Source Automatic Cuff Blood Pressure Location Left Upper Arm Position Sitting Respiration 18 Pulse 64 Pulse Source Monitor Temp 96.1 F L Temp Source Temporal Artery Scan Pulse Oximetry (%) 96 Oxygen Delivery Method Room Air Med/Allergies Allergies & Medications Allergies morphine Allergy (Mild, Verified 07/08/24 13:27) Itching amoxicillin (From Augmentin) Allergy (Unknown, Verified 07/08/24 13:27) Swelling of Lip/Tongue/Throat clavulanic acid (From Augmentin) Allergy (Unknown, Verified 07/08/24 13:27) Swelling of Lip/Tongue/Throat Medication Reconciliation atenolol 50 mg tablet (Tenormin) 50 mg PO QPM #0 tabs 10/15/14 [History Confirmed 07/08/24] pravastatin 20 mg tablet (Pravachol) 20 mg PO QDAY #0 tabs 10/15/14 [History Confirmed 07/08/24] quetiapine 200 mg tablet (Seroquel) 200 mg PO QDAY #0 tabs 10/15/14 [History Confirmed 07/08/24] lorazepam 2 mg tablet 1 mg PO BID 03/01/19 [History Confirmed 07/08/24] Held on 06/09/24. Instructions: Resume on 06/10/24. triamterene 37.5 mg-hydrochlorothiazide 25 mg capsule 1 cap PO QDAY 03/02/19 [History Confirmed 07/08/24] acetaminophen 325 mg tablet (Tylenol) 325 mg PO QID PRN Pain 07/28/20 [History Confirmed 07/08/24] venlafaxine 100 mg tablet 100 mg PO QDAY 07/28/20 [History Confirmed 07/08/24] losartan 25 mg tablet 25 mg PO QDAY 07/30/20 [History Confirmed 07/08/24] Exam Exam Patient is in no acute distress and is cooperative with the examination today. Breathing is nonlabored. Patient has a normal mood and affect. Bilateral extremities were evaluated and demonstrates sensation intact to light touch. Palpable pedal pulses are present. No significant edema is present. Bilateral hips were examined. The patient has no pain with log roll of the hips. Internal rotation to 30 degrees and external rotation to 30 degrees is painless. Negative FADIR. Right knee was examined today. The right knee is in reasonable alignment. Range of motion from 0-120 degrees. Knee is stable to varus and valgus as well as AP translation with <5mm. Patient has a negative McMurrays. There is no pain with patellofemoral compression and no crepitus noted. The knee is nontender to palpation. Left knee was examined today. The left knee is in [varus] alignment. Range of motion from [0-115] degrees. Knee is stable to varus and valgus as well as AP translation with <5mm. Patient has a [negative] McMurrays. There is [no] pain with patellofemoral compression and [no] crepitus noted. The knee is [tender] to palpation [medially]. X-rays demonstrate moderate osteoarthritis of the left knee. There is joint space narrowing. There is no fracture Assessment and Plan Problem List (1) Unilateral primary osteoarthritis, left knee: Status: Acute Plan: Patient is a pleasant 63-year-old female who presents today for evaluation of her left knee. She has mild to moderate left knee osteoarthritis. She is trying to lose weight. We discussed cortisone injections and anti-inflammatories and other nonoperative treatments. . We also recommend weight loss. Recommend knee cortisone injection as patient would like to proceed with conservative treatment at this time. The risks and benefits of the procedure were reviewed with the patient and patient gave verbal consent to continue with the procedure. Procedure: performed by Dr. Barbosa Using sterile technique the left knee was thoroughly prepped with alcohol, and approximately 1 cc of Kenalog 40 mg/mL and 4 cc of 1% lidocaine was injected without resistance into the medial tibial femoral joint space. The patient tolerated the procedure. Advanced Care Planning Discussion Advance care planning discussed with:: patient Office Procedures GNS Level of Care Nursing/Assessment Patient Status: Established Patient Nursing Assessment/Reassesment: Medication Reconciliation, Update PMH in EMR and Vital Signs Coordination of Care: Complex Care and Chronic Disease 1-5, Education Complex Pt/Fam, Consent,records obtained, informed consent, Results/Orders obtained and Staff clarify orders Established Patient Charge Established Patient Point Assignment: 95 Established Patient Point Charge: EP Level 3 (80-115) Surgical Proc/IM SQ injection Major Surgical Procedure: Yes (KNEE INJECTION ) Medication Given Medication Given Medication Given: Yes Documented Dose Given: 4 Route: Infiitration Medication Given Medication Given Medication Given: Yes Documented Dose Given: 1 Route: Infiitration Office Meds Xylocaine 10 mg/mL (1 %) injection solution Performing Provider: Jose Barbosa MD Performing Location: [facility] Administered by: Jose Barbosa MD on 07/08/24 13:41 Dose Route Admin Location Dispensed Lot Number Expiration Date [facility] Cardiopulmonary Supervisor 20 mL Infiltration 20 mL [id number] 09/13/23 75160-420-47 [facility] triamcinolone acetonide 40 mg/mL suspension for injection Performing Provider: Jose Barbosa MD Performing Location: [facility] Administered by: Jose Barbosa MD on 07/08/24 13:41 Dose Route Admin Location Dispensed Lot Number Expiration Date [facility] Cardiopulmonary Supervisor 40 mg intra-articular KNEE 1 mL [id number] 06/12/25 4326-2344-86 [employer] [place] Intake Visit Data Collection New Patient or Established: Established Patient (seen at [facility] within 3 years) Reason for Visit:: FOLLOW UP KNEE INJ Seen by Clinical Staff ONLY (RN/MA): No PCP or OBGYN visit in last 3 months: Yes Hx Now: No Do You Feel Safe at Home: Yes Authorities Contacted: N/A Questionairres Past Medical History Past Medical History Have you ever been diagnosed with any of the following: Neurological Problems Seizures: No Cardiology Problems Hypercholesterolemia: Yes Congestive Heart Failure: No Edema: No Cellulitis: No Hypertension: Yes Varicose Veins: No Respiratory Problems Chronic Obstructive Pulmonary Disease (COPD): No Smoking: No Smoking Exposure: No Stomache/Intestinal Problems Hepatitis: No Diverticulosis: Yes Hemorrhoids: Yes Genital/Urinary Problems Renal Disease: No Reproductive Problems Endometriosis: No Genital Herpes: No Gonorrhea: No Pelvic Inflammatory Disease: No Previous Pregnancies: Yes Syphilis: No Uterine Prolapse: No Musculoskeletal Problems Arthritis: Yes Degenerative Disk Disease: Yes Carpal Tunnel Syndrome: Yes Endocrine Problems Diabetes Mellitus Type 1: No Diabetes Mellitus Type 2: Yes Blood Problems Anemia: Yes Leukemia: No Hemophilia: No Thalassemia: No Sickle Cell Disease: No Clotting Problems: No Psychologic Problems Depression: Yes Anxiety: Yes Other Problems Hospitalization: No Down Syndrome: No Developmental Delay: No Shingles: Yes Falls: No Blood Transfusions: No Blood Transfusion Reaction: No Anesthesia Reactions: No Organ Transplant: No Chemotherapy: No Radiation Therapy: No Hyperbaric Therapy: No MRSA: No VRSA: No Vancomycin-Resistant Enterococci: No Human Immunodeficiency Virus (HIV): No Chicken Pox: Yes Measles: Yes Mumps: Yes Rubella (Guamanian Measles): No Pertussis: No Clostridium Difficile: Yes Cancer: No Surgical History Hysterectomy: Yes Pacemaker: No Subjective Visit Visit for: follow up visit, knee and injections Immunization / Flu Flu Vaccine in the Last 12 Months: No Flu Vaccine Exclusion Criteria: No Exclusion Criteria History of Present Illness Chief complaint: left knee pain She had a fall 12 weeks ago. The pain is improving. She is walking and reports that the pain is worse in the hand Pain Pain level (0-10): 3 Pain duration: ON AND OFF Pain location: inside (medial), outside (lateral) and anterior Pain quality: sharp and aching Pain timing: increases with activity Associated signs & symptoms: none Ambulatory data Ambulatory device: none Treatments Improvement with previous injections: Yes Improvement with PT: No Improvement with NSAIDS: no Review of Systems Review of Systems: All systems negative unless otherwise noted in HPI.
[2024-07-08 13:27] VITALS: BP 157/98; PULSE 64; RESP 18; TEMP 35.6; O2SAT 96; BMI 42.1
== END 2024-07-08 13:44 | disposition home or self-care (01) ==
LOC: HODSRG 13:14
PROVIDERS: PCP Physician Assistant; Referring Provider Physician Assistant; Supervising Provider Orthopaedic Surgery Adult Reconstructive Orthopaedic Surgery; Visit Provider Orthopaedic Surgery Adult Reconstructive Orthopaedic Surgery
DX: M17.12 Unilateral primary osteoarthritis, left knee (principal); I10 Essential (primary) hypertension; E78.00 Pure hypercholesterolemia, unspecified; E11.9 Type 2 diabetes mellitus without complications
CPT/HCPCS: 20610; 99213; J3301; J3490; G0463

== ENCOUNTER → 2024-09-09 | Outpatient (CLI) | payer MEDICARE, MEDICAID, SELFPAY ==
--- NOTE | 2024-09-09 10:45 | XR_ITS ---
Examination: Breast ultrasound, unilateral, left complete Date and time of exam: September 09, 2024 1046 hours INDICATIONS: Mammogram February 25, 2024 focal asymmetry upper left breast MLO view, 3 mm Technique: Real-time shannon scale ultrasonographic imaging performed left breast including all 4 quadrants as well as nipple retroareolar and axillary region. Findings: No cystic or solid mass Implant intact IMPRESSION: BI-RADS Category 1: Negative study
--- NOTE | 2024-09-09 11:15 | XR_ITS ---
Examination: Diagnostic digital mammography, bilateral Computer aided detection 3-D breast Tomosynthesis, bilateral Date and time of exam: September 09, 2024, 1104 hours compared to mammograms dating to November 18, 2019 INDICATIONS: Mammogram August 24, 2023 3 mm focal asymmetry upper left breast MLO view Technique: Nonmagnified MLO, CC views of the breasts to been obtained, reconstructed from 3-D Tomosynthesis images. R2 computer aided detection program utilized for evaluation of suspicious masses and/or abnormal calcifications. 3-D Tomosynthesis images obtained. Findings: Scattered areas of fibroglandular density. Benign calcifications Implants intact No interval suspicious masses Impression: BI-RADS Category 2: Benign findings Recommend yearly follow-up mammography.
== END | disposition home or self-care (01) ==
PROVIDERS: PCP Physician Assistant; Referring Provider Physician Assistant; Visit Provider Physician Assistant
DX: R92.323 Mammographic fibroglandular density, bilateral breasts (principal); R92.1 Mammographic calcification found on diagnostic imaging of breast
CPT/HCPCS: 76641; 77062; 77066; G0279

== ENCOUNTER 2024-10-09 13:18 | Outpatient (AMB) | payer MEDICARE, MEDICAID, SELFPAY ==
--- NOTE | 2024-10-09 13:29 | PD.ORTHCLVIS ---
Vital signs 10/09/24 13:30 Height 1.6 m Height Method Stated Weight 108.862 kg Weight Measurement Method Estimated by Patient BMI 42.5 BP 166/91 H Blood Pressure Source Automatic Cuff Blood Pressure Location Left Upper Arm Position Sitting Respiration 18 Pulse 69 Pulse Source Monitor Temp 95.9 F L Temp Source Temporal Artery Scan Pulse Oximetry (%) 95 Oxygen Delivery Method Room Air Med/Allergies Allergies & Medications Allergies morphine Allergy (Mild, Verified 10/09/24 13:31) Itching amoxicillin (From Augmentin) Allergy (Unknown, Verified 10/09/24 13:31) Swelling of Lip/Tongue/Throat clavulanic acid (From Augmentin) Allergy (Unknown, Verified 10/09/24 13:31) Swelling of Lip/Tongue/Throat Medication Reconciliation atenolol 50 mg tablet (Tenormin) 50 mg PO QPM #0 tabs 10/15/14 [History Confirmed 10/09/24] pravastatin 20 mg tablet (Pravachol) 20 mg PO QDAY #0 tabs 10/15/14 [History Confirmed 10/09/24] quetiapine 200 mg tablet (Seroquel) 200 mg PO QDAY #0 tabs 10/15/14 [History Confirmed 10/09/24] lorazepam 2 mg tablet 1 mg PO BID 03/01/19 [History Confirmed 10/09/24] Held on 06/09/24. Instructions: Resume on 06/10/24. triamterene 37.5 mg-hydrochlorothiazide 25 mg capsule 1 cap PO QDAY 03/02/19 [History Confirmed 10/09/24] acetaminophen 325 mg tablet (Tylenol) 325 mg PO QID PRN Pain 07/28/20 [History Confirmed 10/09/24] venlafaxine 100 mg tablet 100 mg PO QDAY 07/28/20 [History Confirmed 10/09/24] losartan 25 mg tablet 25 mg PO QDAY 07/30/20 [History Confirmed 10/09/24] cyclobenzaprine 5 mg tablet 5 mg PO TID PRN muscle spasm #60 tabs 10/09/24 [Rx] methylprednisolone 4 mg tablets in a dose pack (Medrol (John)) See Rx Instructions PO PER PKG DIR #21 tabs 10/09/24 [Rx] Exam Exam Patient is in no acute distress and is cooperative with the examination today. Breathing is nonlabored. Patient has a normal mood and affect. Bilateral extremities were evaluated and demonstrates sensation intact to light touch. Palpable pedal pulses are present. No significant edema is present. Bilateral hips were examined. The patient has no pain with log roll of the hips. Internal rotation to 30 degrees and external rotation to 30 degrees is painless. Negative FADIR. Right knee was examined today. The right knee is in reasonable alignment. Range of motion from 0-120 degrees. Knee is stable to varus and valgus as well as AP translation with <5mm. Patient has a negative McMurrays. There is no pain with patellofemoral compression and no crepitus noted. The knee is nontender to palpation. Left knee was examined today. The left knee is in [varus] alignment. Range of motion from [0-115] degrees. Knee is stable to varus and valgus as well as AP translation with <5mm. Patient has a [negative] McMurrays. There is [no] pain with patellofemoral compression and [no] crepitus noted. The knee is [tender] to palpation [medially]. X-rays demonstrate moderate osteoarthritis of the left knee. There is joint space narrowing. There is no fracture Assessment and Plan Problem List (1) Unilateral primary osteoarthritis, left knee: Status: Acute Plan: Patient is a pleasant 63-year-old female who presents today for evaluation of her left knee. She has mild to moderate left knee osteoarthritis. She is trying to lose weight. We discussed cortisone injections and anti-inflammatories and other nonoperative treatments. We also recommend weight loss. We sent her a medrol dose pack for her back pain Advanced Care Planning Discussion Advance care planning discussed with:: patient Office Procedures GNS Level of Care Nursing/Assessment Patient Status: Established Patient Nursing Assessment/Reassesment: Medication Reconciliation, Orthostatic Vitals, Update PMH in EMR and Vital Signs Coordination of Care: Complex Care and Chronic Disease 1-5, Education Complex Pt/Fam, Consent,records obtained, informed consent, Lab and Imaging orders, Results/Orders obtained and Staff clarify orders Established Patient Charge Established Patient Point Assignment: 120 Established Patient Point Charge: EP Level 4 (120-155) AL Intake Visit Data Collection New Patient or Established: Established Patient (seen at [facility] within 3 years) Reason for Visit:: FOLLOW UP KNEE INJ Seen by Clinical Staff ONLY (RN/MA): No Line Production Cook Required: No PCP or OBGYN visit in last 3 months: Yes Hx Now: No Do You Feel Safe at Home: Yes Authorities Contacted: N/A Questionairres Past Medical History Past Medical History Have you ever been diagnosed with any of the following: Neurological Problems Seizures: No Cardiology Problems Hypercholesterolemia: Yes Congestive Heart Failure: No Edema: No Cellulitis: No Hypertension: Yes Varicose Veins: No Respiratory Problems Chronic Obstructive Pulmonary Disease (COPD): No Smoking: No Smoking Exposure: No Stomache/Intestinal Problems Hepatitis: No Diverticulosis: Yes Hemorrhoids: Yes Genital/Urinary Problems Renal Disease: No Reproductive Problems Endometriosis: No Genital Herpes: No Gonorrhea: No Pelvic Inflammatory Disease: No Previous Pregnancies: Yes Syphilis: No Uterine Prolapse: No Musculoskeletal Problems Arthritis: Yes Degenerative Disk Disease: Yes Carpal Tunnel Syndrome: Yes Endocrine Problems Diabetes Mellitus Type 1: No Diabetes Mellitus Type 2: Yes Blood Problems Anemia: Yes Leukemia: No Hemophilia: No Thalassemia: No Sickle Cell Disease: No Clotting Problems: No Psychologic Problems Depression: Yes Anxiety: Yes Other Problems Hospitalization: No Down Syndrome: No Developmental Delay: No Shingles: Yes Falls: No Blood Transfusions: No Blood Transfusion Reaction: No Anesthesia Reactions: No Organ Transplant: No Chemotherapy: No Radiation Therapy: No Hyperbaric Therapy: No MRSA: No VRSA: No Vancomycin-Resistant Enterococci: No Human Immunodeficiency Virus (HIV): No Chicken Pox: Yes Measles: Yes Mumps: Yes Rubella (Pashto Measles): No Pertussis: No Clostridium Difficile: Yes Cancer: No Surgical History Hysterectomy: Yes Pacemaker: No Subjective Visit Visit for: follow up visit, knee and injections Immunization / Flu Flu Vaccine in the Last 12 Months: No Flu Vaccine Exclusion Criteria: No Exclusion Criteria History of Present Illness Chief complaint: left knee pain She reports left knee pain that has incerased recently. She reports the back is hurting is the most. Pain Pain level (0-10): 6 Pain duration: ON AND OFF Pain location: inside (medial), outside (lateral) and anterior Pain quality: sharp and aching Pain timing: increases with activity Associated signs & symptoms: none Ambulatory data Ambulatory device: none Treatments Improvement with previous injections: Yes Improvement with PT: No Improvement with NSAIDS: no Review of Systems Review of Systems: All systems negative unless otherwise noted in HPI.
[2024-10-09 13:30] VITALS: BP 166/91; PULSE 69; RESP 18; TEMP 35.5; O2SAT 95; BMI 42.5
== END 2024-10-09 13:39 | disposition home or self-care (01) ==
LOC: HODSRG 13:18
PROVIDERS: PCP Physician Assistant; Referring Provider Physician Assistant; Supervising Provider Orthopaedic Surgery Adult Reconstructive Orthopaedic Surgery; Visit Provider Orthopaedic Surgery Adult Reconstructive Orthopaedic Surgery
DX: M17.12 Unilateral primary osteoarthritis, left knee (principal); I10 Essential (primary) hypertension; E78.00 Pure hypercholesterolemia, unspecified; E11.9 Type 2 diabetes mellitus without complications; M25.562 Pain in left knee; M54.9 Dorsalgia, unspecified
CPT/HCPCS: 99214; G0463

== ENCOUNTER 2024-12-05 11:00 | Outpatient (AMB) | payer MEDICARE, MEDICAID, SELFPAY ==
--- NOTE | 2024-12-05 11:22 | PD.ORTHCLVIS ---
Vital signs 12/05/24 11:24 Height 1.6 m Height Method Measured Weight 108.862 kg Weight Measurement Method Stated by Patient BMI 42.5 BP 144/84 H Blood Pressure Source Automatic Cuff Blood Pressure Location Left Upper Arm Position Sitting Respiration 18 Pulse 68 Pulse Source Monitor Temp 96.0 F L Temp Source Temporal Artery Scan Pulse Oximetry (%) 98 Oxygen Delivery Method Room Air Med/Allergies Allergies & Medications Allergies morphine Allergy (Mild, Verified 12/05/24 11:25) Itching amoxicillin (From Augmentin) Allergy (Unknown, Verified 12/05/24 11:25) Swelling of Lip/Tongue/Throat clavulanic acid (From Augmentin) Allergy (Unknown, Verified 12/05/24 11:25) Swelling of Lip/Tongue/Throat Medication Reconciliation atenolol 50 mg tablet (Tenormin) 50 mg PO QPM #0 tabs 10/15/14 [History Confirmed 12/05/24] pravastatin 20 mg tablet (Pravachol) 20 mg PO QDAY #0 tabs 10/15/14 [History Confirmed 12/05/24] quetiapine 200 mg tablet (Seroquel) 200 mg PO QDAY #0 tabs 10/15/14 [History Confirmed 12/05/24] lorazepam 2 mg tablet 1 mg PO BID 03/01/19 [History Confirmed 12/05/24] Held on 06/09/24. Instructions: Resume on 06/10/24. triamterene 37.5 mg-hydrochlorothiazide 25 mg capsule 1 cap PO QDAY 03/02/19 [History Confirmed 12/05/24] acetaminophen 325 mg tablet (Tylenol) 325 mg PO QID PRN Pain 07/28/20 [History Confirmed 12/05/24] venlafaxine 100 mg tablet 100 mg PO QDAY 07/28/20 [History Confirmed 12/05/24] losartan 25 mg tablet 25 mg PO QDAY 07/30/20 [History Confirmed 12/05/24] cyclobenzaprine 5 mg tablet 5 mg PO TID PRN muscle spasm #60 tabs 10/09/24 [Rx Confirmed 12/05/24] methylprednisolone 4 mg tablets in a dose pack (Medrol (John)) See Rx Instructions PO PER PKG DIR #21 tabs 10/09/24 [Rx Confirmed 10/24/25] pregabalin 75 mg capsule 75 mg PO BID #60 caps 12/05/24 [Rx] Exam Exam Patient is in no acute distress and is cooperative with the examination today. Breathing is nonlabored. Patient has a normal mood and affect. Bilateral extremities were evaluated and demonstrates sensation intact to light touch. Palpable pedal pulses are present. No significant edema is present. Bilateral hips were examined. The patient has no pain with log roll of the hips. Internal rotation to 30 degrees and external rotation to 30 degrees is painless. Negative FADIR. Right knee was examined today. The right knee is in reasonable alignment. Range of motion from 0-120 degrees. Knee is stable to varus and valgus as well as AP translation with <5mm. Patient has a negative McMurrays. There is no pain with patellofemoral compression and no crepitus noted. The knee is nontender to palpation. Left knee was examined today. The left knee is in [varus] alignment. Range of motion from [0-115] degrees. Knee is stable to varus and valgus as well as AP translation with <5mm. Patient has a [negative] McMurrays. There is [no] pain with patellofemoral compression and [no] crepitus noted. The knee is [tender] to palpation [medially]. X-rays demonstrate moderate osteoarthritis of the left knee. There is joint space narrowing. There is no fracture Assessment and Plan Problem List (1) Unilateral primary osteoarthritis, left knee: Status: Acute Plan: Patient is a pleasant 63-year-old female who presents today for evaluation of her left knee. She has mild to moderate left knee osteoarthritis. She is trying to lose weight. We discussed cortisone injections and anti-inflammatories and other nonoperative treatments. We also recommend weight loss. We sent her lyrica for her numbness anbd tingling. She can followup with us as needed Advanced Care Planning Discussion Advance care planning discussed with:: patient Office Procedures GNS Level of Care Nursing/Assessment Patient Status: Established Patient Nursing Assessment/Reassesment: Medication Reconciliation, Update PMH in EMR and Vital Signs Coordination of Care: Complex Care and Chronic Disease 1-5, Education Complex Pt/Fam, Consent,records obtained, informed consent, Results/Orders obtained and Staff clarify orders Established Patient Charge Established Patient Point Assignment: 95 Established Patient Point Charge: EP Level 3 (80-115) MA Intake Visit Data Collection New Patient or Established: Established Patient (seen at [facility] within 3 years) Reason for Visit:: LEFT KNEE PAIN Seen by Clinical Staff ONLY (RN/MA): No 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 PCP or OBGYN visit in last 3 months: Yes Hx Now: No Do You Feel Safe at Home: Yes Authorities Contacted: N/A Questionairres Past Medical History Past Medical History Have you ever been diagnosed with any of the following: Neurological Problems Seizures: No Cardiology Problems Hypercholesterolemia: Yes Congestive Heart Failure: No Edema: No Cellulitis: No Hypertension: Yes Varicose Veins: No Respiratory Problems Chronic Obstructive Pulmonary Disease (COPD): No Smoking: No Smoking Exposure: No Stomache/Intestinal Problems Hepatitis: No Diverticulosis: Yes Hemorrhoids: Yes Genital/Urinary Problems Renal Disease: No Reproductive Problems Endometriosis: No Genital Herpes: No Gonorrhea: No Pelvic Inflammatory Disease: No Previous Pregnancies: Yes Syphilis: No Uterine Prolapse: No Musculoskeletal Problems Arthritis: Yes Degenerative Disk Disease: Yes Carpal Tunnel Syndrome: Yes Endocrine Problems Diabetes Mellitus Type 1: No Diabetes Mellitus Type 2: Yes Blood Problems Anemia: Yes Leukemia: No Hemophilia: No Thalassemia: No Sickle Cell Disease: No Clotting Problems: No Psychologic Problems Depression: Yes Anxiety: Yes Other Problems Hospitalization: No Down Syndrome: No Developmental Delay: No Shingles: Yes Falls: No Blood Transfusions: No Blood Transfusion Reaction: No Anesthesia Reactions: No Organ Transplant: No Chemotherapy: No Radiation Therapy: No Hyperbaric Therapy: No MRSA: No VRSA: No Vancomycin-Resistant Enterococci: No Human Immunodeficiency Virus (HIV): No Chicken Pox: Yes Measles: Yes Mumps: Yes Rubella (Yakut Measles): No Pertussis: No Clostridium Difficile: Yes Cancer: No Surgical History Hysterectomy: Yes Pacemaker: No Subjective Visit Visit for: follow up visit, knee and injections Immunization / Flu Flu Vaccine in the Last 12 Months: No Flu Vaccine Exclusion Criteria: No Exclusion Criteria History of Present Illness Chief complaint: left knee pain She reports left knee pain that has incerased recently. She reports the back is hurting is the most. She has radicular pain that starts from her buttocks Pain Pain level (0-10): 9 Pain duration: ON AND OFF Pain location: inside (medial), outside (lateral) and anterior Pain quality: sharp and aching Pain timing: increases with activity Associated signs & symptoms: none Ambulatory data Ambulatory device: none Treatments Improvement with previous injections: Yes Improvement with PT: No Improvement with NSAIDS: no Review of Systems Review of Systems: All systems negative unless otherwise noted in HPI.
[2024-12-05 11:24] VITALS: BP 144/84; PULSE 68; RESP 18; TEMP 35.6; O2SAT 98; BMI 42.5
== END 2024-12-05 11:29 | disposition home or self-care (01) ==
LOC: HODSRG 11:00
PROVIDERS: PCP Physician Assistant; Referring Provider Physician Assistant; Supervising Provider Orthopaedic Surgery Adult Reconstructive Orthopaedic Surgery; Visit Provider Orthopaedic Surgery Adult Reconstructive Orthopaedic Surgery
DX: M25.562 Pain in left knee (principal); M17.12 Unilateral primary osteoarthritis, left knee; I10 Essential (primary) hypertension
CPT/HCPCS: 99213; G0463

== ENCOUNTER 2025-01-15 13:34 | Outpatient (AMB) | payer MEDICARE, MEDICAID, SELFPAY ==
--- NOTE | 2025-01-15 14:16 | ORTHONT_ITS ---
Vital signs 01/15/25 14:23 Height 1.6 m Height Method Measured Weight 106.141 kg Weight Measurement Method Standing Scale BMI 41.4 BP 151/93 H Blood Pressure Source Automatic Cuff Blood Pressure Location Left Upper Arm Position Sitting Respiration 18 Pulse 77 Pulse Source Monitor Temp 97.9 F Temp Source Temporal Artery Scan Pulse Oximetry (%) 94 L Oxygen Delivery Method Room Air Med/Allergies Allergies & Medications Allergies morphine Allergy (Mild, Verified 01/15/25 14:24) Itching amoxicillin (From Augmentin) Allergy (Unknown, Verified 01/15/25 14:24) Swelling of Lip/Tongue/Throat clavulanic acid (From Augmentin) Allergy (Unknown, Verified 01/15/25 14:24) Swelling of Lip/Tongue/Throat Medication Reconciliation atenolol 50 mg tablet (Tenormin) 50 mg PO QPM #0 tabs 10/15/14 [History Confirmed 01/15/25] pravastatin 20 mg tablet (Pravachol) 20 mg PO QDAY #0 tabs 10/15/14 [History Confirmed 01/15/25] quetiapine 200 mg tablet (Seroquel) 200 mg PO QDAY #0 tabs 10/15/14 [History Confirmed 01/15/25] lorazepam 2 mg tablet 1 mg PO BID 03/01/19 [History Confirmed 01/15/25] Held on 06/09/24. Instructions: Resume on 06/10/24. triamterene 37.5 mg-hydrochlorothiazide 25 mg capsule 1 cap PO QDAY 03/02/19 [History Confirmed 01/15/25] acetaminophen 325 mg tablet (Tylenol) 325 mg PO QID PRN Pain 07/28/20 [History Confirmed 01/15/25] venlafaxine 100 mg tablet 100 mg PO QDAY 07/28/20 [History Confirmed 01/15/25] losartan 25 mg tablet 25 mg PO QDAY 07/30/20 [History Confirmed 01/15/25] cyclobenzaprine 5 mg tablet 5 mg PO TID PRN muscle spasm #60 tabs 10/09/24 [Rx Confirmed 01/15/25] methylprednisolone 4 mg tablets in a dose pack (Medrol (John)) See Rx Instructions PO PER PKG DIR #21 tabs 10/09/24 [Rx Confirmed 01/15/25] pregabalin 75 mg capsule 75 mg PO BID #60 caps 12/05/24 [Rx Confirmed 01/15/25] Exam Exam Patient is in no acute distress and is cooperative with the examination today. Breathing is nonlabored. Patient has a normal mood and affect. Bilateral extremities were evaluated and demonstrates sensation intact to light touch. Palpable pedal pulses are present. No significant edema is present. Bilateral hips were examined. The patient has no pain with log roll of the hips. Internal rotation to 30 degrees and external rotation to 30 degrees is painless. Negative FADIR. Right knee was examined today. The right knee is in reasonable alignment. Range of motion from 0-120 degrees. Knee is stable to varus and valgus as well as AP translation with <5mm. Patient has a negative McMurrays. There is no pain with patellofemoral compression and no crepitus noted. The knee is nontender to palpation. Left knee was examined today. The left knee is in [varus] alignment. Range of motion from [0-115] degrees. Knee is stable to varus and valgus as well as AP translation with <5mm. Patient has a [negative] McMurrays. There is [no] pain with patellofemoral compression and [no] crepitus noted. The knee is [tender] to palpation [medially]. X-rays demonstrate moderate osteoarthritis of the left knee. There is joint space narrowing. There is no fracture Assessment and Plan Problem List (1) Unilateral primary osteoarthritis, left knee: Status: Acute Plan: Patient is a pleasant 64-year-old female who presents today for evaluation of her left knee. She has mild to moderate left knee osteoarthritis. We will get new xrays today. Recommend knee cortisone injection as patient would like to proceed with conservative treatment at this time. The risks and benefits of the procedure were reviewed with the patient and patient gave verbal consent to continue with the procedure. Procedure: performed by Dr. Barbosa Using sterile technique the left knee was thoroughly prepped with alcohol, and approximately 1 cc of Depo-Medrol 80mg/mL and 4 cc of 0.2% ropivacaine was injected without resistance into the medial tibial femoral joint space. The patient tolerated the procedure. Advanced Care Planning Discussion Advance care planning discussed with:: patient Office Procedures GNS Level of Care Nursing/Assessment Patient Status: Established Patient Nursing Assessment/Reassesment: Medication Reconciliation, Update PMH in EMR and Vital Signs Coordination of Care: Complex Care and Chronic Disease 1-5, Education Complex Pt/Fam, Consent,records obtained, informed consent, Results/Orders obtained and Staff clarify orders Established Patient Charge Established Patient Point Assignment: 95 Established Patient Point Charge: EP Level 3 (80-115) Surgical Proc/IM SQ injection Minor Surgical Procedure: Yes (KNEE INJECTION ) Medication Given Medication Given Medication Given: Yes Documented Dose Given: 1 Route: Infiitration Medication Given Medication Given Medication Given: Yes Documented Dose Given: 4 Route: Infiitration Office Meds methylprednisolone acetate 80 mg/mL suspension for injection Performing Provider: Jose Barbosa MD Performing Location: [facility] Administered by: Jose Barbosa MD on 01/15/25 15:15 Dose Route Admin Location Dispensed Lot Number Expiration Date Pack age [facility] Practical Nursing Faculty 80 mg intra-articular 80 mL ropivacaine (PF) 2 mg/mL (0.2 %) injection solution Performing Provider: Jose Barbosa MD Performing Location: [facility] Administered by: Jose Barbosa MD on 01/15/25 15:15 Dose Route Admin Location Dispensed Lot Number Expiration Date Pack age [facility] [place] Practical Nursing Faculty 20 mL Infiltration 20 mL MA Intake Visit Data Collection New Patient or Established: Established Patient (seen at [facility] within 3 years) Reason for Visit:: LEFT KNEE PAIN Seen by Clinical Staff ONLY (RN/MA): No 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 PCP or OBGYN visit in last 3 months: Yes Hx Now: No Do You Feel Safe at Home: Yes Authorities Contacted: N/A Questionairres Past Medical History Past Medical History Have you ever been diagnosed with any of the following: Neurological Problems Seizures: No Cardiology Problems Hypercholesterolemia: Yes Congestive Heart Failure: No Edema: No Cellulitis: No Hypertension: Yes Varicose Veins: No Respiratory Problems Chronic Obstructive Pulmonary Disease (COPD): No Smoking: No Smoking Exposure: No Stomache/Intestinal Problems Hepatitis: No Diverticulosis: Yes Hemorrhoids: Yes Genital/Urinary Problems Renal Disease: No Reproductive Problems Endometriosis: No Genital Herpes: No Gonorrhea: No Pelvic Inflammatory Disease: No Previous Pregnancies: Yes Syphilis: No Uterine Prolapse: No Musculoskeletal Problems Arthritis: Yes Degenerative Disk Disease: Yes Carpal Tunnel Syndrome: Yes Endocrine Problems Diabetes Mellitus Type 1: No Diabetes Mellitus Type 2: Yes Blood Problems Anemia: Yes Leukemia: No Hemophilia: No Thalassemia: No Sickle Cell Disease: No Clotting Problems: No Psychologic Problems Depression: Yes Anxiety: Yes Other Problems Hospitalization: No Down Syndrome: No Developmental Delay: No Shingles: Yes Falls: No Blood Transfusions: No Blood Transfusion Reaction: No Anesthesia Reactions: No Organ Transplant: No Chemotherapy: No Radiation Therapy: No Hyperbaric Therapy: No MRSA: No VRSA: No Vancomycin-Resistant Enterococci: No Human Immunodeficiency Virus (HIV): No Chicken Pox: Yes Measles: Yes Mumps: Yes Rubella (English Measles): No Pertussis: No Clostridium Difficile: Yes Cancer: No Surgical History Hysterectomy: Yes Pacemaker: No Subjective Visit Visit for: follow up visit, knee and injections Immunization / Flu Flu Vaccine in the Last 12 Months: No Flu Vaccine Exclusion Criteria: No Exclusion Criteria History of Present Illness Chief complaint: left knee pain She reports left knee pain that has incerased recently. She reports the back is hurting is the most. She has radicular pain that starts from her buttocks Pain Pain level (0-10): 9 Pain duration: ON AND OFF Pain location: inside (medial), outside (lateral) and anterior Pain quality: sharp and aching Pain timing: increases with activity Associated signs & symptoms: none Ambulatory data Ambulatory device: none Treatments Improvement with previous injections: Yes Improvement with PT: No Improvement with NSAIDS: no Review of Systems Review of Systems: All systems negative unless otherwise noted in HPI.
[2025-01-15 14:23] VITALS: BP 151/93; PULSE 77; RESP 18; TEMP 36.6; O2SAT 94; BMI 41.4
--- NOTE | 2025-01-15 14:34 | XR_ITS ---
EXAMINATION: Bilateral knees 2 views Right lateral knee left lateral knee 2 views Bilateral [place] single view Date and time: January 15, 2025, 1454 hours INDICATIONS: Bilateral knee pain 1 year. FINDINGS: Prominent osteopenia Advanced narrowing medial joint spaces bilaterally Moderate narrowing patellofemoral joints No fractures IMPRESSION: Advanced narrowing medial joint spaces bilaterally
== END 2025-01-15 14:47 | disposition home or self-care (01) ==
LOC: HODSRG 13:34
PROVIDERS: PCP Physician Assistant; Referring Provider Physician Assistant; Supervising Provider Orthopaedic Surgery Adult Reconstructive Orthopaedic Surgery; Visit Provider Orthopaedic Surgery Adult Reconstructive Orthopaedic Surgery
DX: M17.12 Unilateral primary osteoarthritis, left knee (principal); M25.562 Pain in left knee; I10 Essential (primary) hypertension
CPT/HCPCS: 20610; 73564; 99213; J1010; J2795; G0463

== ENCOUNTER → 2025-01-21 | Outpatient (CLI) | payer MEDICARE, MEDICAID, SELFPAY ==
--- NOTE | 2025-01-21 14:36 | XR_ITS ---
EXAMINATION: Bilateral wrist 6 views TECHNIQUE: AP oblique lateral each wrist total 6 views Date and time: January 21, 2025, 1442 hours INDICATIONS: Patient fell 1 year ago with injury to both wrist, bilateral wrist pain. FINDINGS: Healed fracture distal radial left metaphysis Atrophic left trapezium Old fracture deformity base left first metacarpal No acute fracture Atrophic trapezium right wrist Mild to moderate osteoarthritis right radiocarpal joint No acute right wrist fracture IMPRESSION: Old fractures as above No acute fracture Osteoarthritis as above
== END | disposition home or self-care (01) ==
PROVIDERS: PCP Physician Assistant; Referring Provider Surgery; Visit Provider Surgery
DX: M19.032 Primary osteoarthritis, left wrist (principal); M19.031 Primary osteoarthritis, right wrist; S69.92XS Unspecified injury of left wrist, hand and finger(s), sequela; S69.91XS Unspecified injury of right wrist, hand and finger(s), sequela; W19.XXXS Unspecified fall, sequela
CPT/HCPCS: 73110

== ENCOUNTER 2025-01-29 14:44 | Outpatient (AMB) | payer MEDICARE, MEDICAID, SELFPAY ==
--- NOTE | 2025-01-29 15:00 | ORTHONT_ITS ---
Vital signs 01/29/25 15:01 Height 1.6 m Height Method Stated Weight 105.432 kg Weight Measurement Method Standing Scale BMI 41.1 BP 150/92 H Blood Pressure Source Automatic Cuff Blood Pressure Location Left Upper Arm Position Sitting Respiration 19 Pulse 66 Pulse Source Monitor Temp 97.5 F Temp Source Temporal Artery Scan Pulse Oximetry (%) 96 Oxygen Delivery Method Room Air Med/Allergies Allergies & Medications Allergies morphine Allergy (Mild, Verified 01/29/25 15:02) Itching amoxicillin (From Augmentin) Allergy (Unknown, Verified 01/29/25 15:02) Swelling of Lip/Tongue/Throat clavulanic acid (From Augmentin) Allergy (Unknown, Verified 01/29/25 15:02) Swelling of Lip/Tongue/Throat Medication Reconciliation atenolol 50 mg tablet (Tenormin) 50 mg PO QPM #0 tabs 10/15/14 [History Confirmed 01/29/25] pravastatin 20 mg tablet (Pravachol) 20 mg PO QDAY #0 tabs 10/15/14 [History Confirmed 01/29/25] quetiapine 200 mg tablet (Seroquel) 200 mg PO QDAY #0 tabs 10/15/14 [History Con firmed 01/29/25] lorazepam 2 mg tablet 1 mg PO BID 03/01/19 [History Confirmed 01/29/25] Held on 06/09/24. Instructions: Resume on 06/10/24. triamterene 37.5 mg-hydrochlorothiazide 25 mg capsule 1 cap PO QDAY 03/02/19 [History Confirmed 01/29/25] acetaminophen 325 mg tablet (Tylenol) 325 mg PO QID PRN Pain 07/28/20 [History Confirmed 01/29/25] venlafaxine 100 mg tablet 100 mg PO QDAY 07/28/20 [History Confirmed 01/29/25] losartan 25 mg tablet 25 mg PO QDAY 07/30/20 [History Confirmed 01/29/25] cyclobenzaprine 5 mg tablet 5 mg PO TID PRN muscle spasm #60 tabs 10/09/24 [Rx Confirmed 01/29/25] methylprednisolone 4 mg tablets in a dose pack (Medrol (John)) See Rx Instructions PO PER PKG DIR #21 tabs 10/09/24 [Rx Confirmed 01/29/25] pregabalin 75 mg capsule 75 mg PO BID #60 caps 12/05/24 [Rx Confirmed 01/29/25] Exam Exam Patient is in no acute distress and is cooperative with the examination today. Breathing is nonlabored. Patient has a normal mood and affect. Bilateral extremities were evaluated and demonstrates sensation intact to light touch. Palpable pedal pulses are present. No significant edema is present. Bilateral hips were examined. The patient has no pain with log roll of the hips. Internal rotation to 30 degrees and external rotation to 30 degrees is painless. Negative FADIR. Right knee was examined today. The right knee is in reasonable alignment. Range of motion from 0-120 degrees. Knee is stable to varus and valgus as well as AP translation with <5mm. Patient has a negative McMurrays. There is no pain with patellofemoral compression and no crepitus noted. The knee is nontender to palpation. Left knee was examined today. The left knee is in [varus] alignment. Range of motion from [0-115] degrees. Knee is stable to varus and valgus as well as AP translation with <5mm. Patient has a [negative] McMurrays. There is [no] pain with patellofemoral compression and [no] crepitus noted. The knee is [tender] to palpation [medially]. X-rays demonstrate severe osteoarthritis of the left knee. There is joint space narrowing. There is no fracture Assessment and Plan Problem List (1) Unilateral primary osteoarthritis, left knee: Status: Acute Plan: Patient is a pleasant 64-year-old female who presents today for evaluation of her left knee. She has severe arthritis of the left knee with the last injection We will see her back in 3 months for possible repeat injection Advanced Care Planning Discussion Advance care planning discussed with:: patient Office Procedures GNS Level of Care Nursing/Assessment Patient Status: Established Patient Nursing Assessment/Reassesment: Medication Reconciliation, Update PMH in EMR and Vital Signs Coordination of Care: Complex Care and Chronic Disease 1-5, Education Complex Pt/Fam, Consent,records obtained, informed consent, Results/Orders obtained and Staff clarify orders Established Patient Charge Established Patient Point Assignment: 95 Established Patient Point Charge: EP Level 3 (80-115) MA Intake Visit Data Collection New Patient or Established: Established Patient (seen at [facility] within 3 years) Reason for Visit:: KNEE XRAYS Seen by Clinical Staff ONLY (RN/MA): No Sharepoint 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 Required: No PCP or OBGYN visit in last 3 months: Yes Hx Now: No Do You Feel Safe at Home: Yes Authorities Contacted: N/A Questionairres Past Medical History Past Medical History Have you ever been diagnosed with any of the following: Neurological Problems Seizures: No Cardiology Problems Hypercholesterolemia: Yes Congestive Heart Failure: No Edema: No Cellulitis: No Hypertension: Yes Varicose Veins: No Respiratory Problems Chronic Obstructive Pulmonary Disease (COPD): No Smoking: No Smoking Exposure: No Stomache/Intestinal Problems Hepatitis: No Diverticulosis: Yes Hemorrhoids: Yes Genital/Urinary Problems Renal Disease: No Reproductive Problems Endometriosis: No Genital Herpes: No Gonorrhea: No Pelvic Inflammatory Disease: No Previous Pregnancies: Yes Syphilis: No Uterine Prolapse: No Musculoskeletal Problems Arthritis: Yes Degenerative Disk Disease: Yes Carpal Tunnel Syndrome: Yes Endocrine Problems Diabetes Mellitus Type 1: No Diabetes Mellitus Type 2: Yes Blood Problems Anemia: Yes Leukemia: No Hemophilia: No Thalassemia: No Sickle Cell Disease: No Clotting Problems: No Psychologic Problems Depression: Yes Anxiety: Yes Other Problems Hospitalization: No Down Syndrome: No Developmental Delay: No Shingles: Yes Falls: No Blood Transfusions: No Blood Transfusion Reaction: No Anesthesia Reactions: No Organ Transplant: No Chemotherapy: No Radiation Therapy: No Hyperbaric Therapy: No MRSA: No VRSA: No Vancomycin-Resistant Enterococci: No Human Immunodeficiency Virus (HIV): No Chicken Pox: Yes Measles: Yes Mumps: Yes Rubella (Urdu Measles): No Pertussis: No Clostridium Difficile: Yes Cancer: No Surgical History Hysterectomy: Yes Pacemaker: No Subjective Visit Visit for: follow up visit and knee Immunization / Flu Flu Vaccine in the Last 12 Months: No Flu Vaccine Exclusion Criteria: No Exclusion Criteria History of Present Illness Chief complaint: left knee pain She reports left knee pain that has increased recently. She reports the back is hurting is the most. She has radicular pain that starts from her buttocks. She is doing well with the right knee injection Pain Pain level (0-10): 9 Pain duration: ON AND OFF Pain location: inside (medial), outside (lateral) and anterior Pain quality: sharp and aching Pain timing: increases with activity Associated signs & symptoms: none Ambulatory data Ambulatory device: cane Treatments Improvement with previous injections: Yes Improvement with PT: No Improvement with NSAIDS: no Review of Systems Review of Systems: All systems negative unless otherwise noted in HPI.
[2025-01-29 15:01] VITALS: BP 150/92; PULSE 66; RESP 19; TEMP 36.4; O2SAT 96; BMI 41.1
== END 2025-01-29 15:12 | disposition home or self-care (01) ==
LOC: HODSRG 14:44
PROVIDERS: PCP Physician Assistant; Referring Provider Physician Assistant; Supervising Provider Orthopaedic Surgery Adult Reconstructive Orthopaedic Surgery; Visit Provider Orthopaedic Surgery Adult Reconstructive Orthopaedic Surgery
DX: M17.12 Unilateral primary osteoarthritis, left knee (principal); M54.10 Radiculopathy, site unspecified
CPT/HCPCS: 99213; G0463